=== PATIENT | female | born 1930 | race Caucasian/White ===

== ENCOUNTER → 2018-10-07 | Outpatient (CLI) | payer MEDICARE ==
[2018-10-07 10:47] LABS: Basophils % (A) 0 %; Eosinophils # (A) 0.3 k/uL (0-0.7); Eosinophils % (A) 4 %; HGB 10.6 gm/dL (11.4-16.0); Lymphocytes # (A) 1.6 k/uL (1.0-4.8); Lymphocytes % (A) 23 %; MCH 29.5 pg (25.0-35.0); MCV 92.1 fL (80.0-100.0); Mean Platelet Volume 6.4; Monocytes # (A) 0.3 k/uL (0-1.0); Monocytes % (A) 4 %; Neutrophils # (A) 4.7 k/uL (1.3-7.7); Neutrophils % (A) 67 %; Platelet Count 336 k/uL (150-450); RBC 3.59 m/uL (3.80-5.40); RDW 14.4 % (11.5-15.5)
[2018-10-07 13:18] LABS: Erythrocyte Sedimentation Rate 28 mm/hr (0-20)
[2018-10-07 17:14] LABS: ALT 19 U/L (8-44); AST 27 U/L (13-35); Albumin/Globulin Ratio 2.09 (1.20-2.10); Alkaline Phosphatase 93 U/L (41-126); C Reactive Protein <0.4 mg/dL (0.0-0.8); Calcium 9.3 mg/dL (8.7-10.3); Carbon Dioxide 23.9 mmol/L (21.6-31.8); Chloride 105 mmol/L (96-109); Cholesterol 163 mg/dL (0-200); Creatine Kinase 105 U/L (26-186); Globulin 2.2 g/dL (2.1-3.7); Glucose 84 mg/dL (70-110); LDL Cholesterol,Calculated 74.4 mg/dL (0.0-131.0); Phosphorus 3.7 mg/dL (2.4-5.1); Potassium 5.3 mmol/L (3.5-5.5); Sodium 137 mmol/L (135-145); Total Protein 6.8 g/dL (6.2-8.2); Uric Acid 7.1 mg/dL (2.9-7.7)
== END ==
LOC: LABWHC1 08:59
PROVIDERS: ATTEND Internal Medicine
DX: E87.8 Other disorders of electrolyte and fluid balance, not elsewhere classified (principal); E55.9 Vitamin D deficiency, unspecified; E03.9 Hypothyroidism, unspecified; E78.5 Hyperlipidemia, unspecified; N18.4 Chronic kidney disease, stage 4 (severe); D63.1 Anemia in chronic kidney disease
CPT/HCPCS: 36415; 80053; 80061; 82550; 83735; 83970; 84100; 84439; 84443; 84550; 85025; 85652; 86140